=== PATIENT | female | born 1960 | race Caucasian/White ===

== ENCOUNTER 2023-02-18 04:00 | Day surgery (SDC) | payer OTHER ==
[2023-02-18] VITALS (234 sets, daily range): BP systolic 74–221; BP diastolic 28–196
[~2023-02-18] VITALS: Ht 147.3 cm; Wt 51.0 kg
[2023-02-18 08:08] LABS: BASO% 0.6 % (0-3); EOS% 2.5 % (0-8); HEMATOCRIT 41.8 % (37.0-47.0); HEMOGLOBIN 13.4 g/dl (12.0-16.0); IMMATURE GRANULOCYTES 0.1 % (0.0-5.0); MEAN CELL VOLUME 92.7 fL CALC (80.0-100.0); MEAN CORPUSCULAR HGB 29.7 pG CALC (26.0-32.0); MEAN CORPUSCULAR HGB CONC 32.1 g/dL CAL (32.0-36.0); MONO% 8.8 % (2-13); NEUT# 4.28 thou/uL (2.00-7.15); RED BLOOD COUNT 4.51 mill/uL (4.20-5.60); RED CELL DISTRI WIDTH 12.5 % (11.5-15.5)
[2023-02-18 08:31] LABS: ALBUMIN 3.9 g/dL (3.2-5.0); ALKALINE PHOSPHATASE 90 u/l (38-126); ANION GAP 10 (6-22 (CALC)); BILIRUBIN, TOTAL 0.2 mg/dL (0.02-1.3); BUN 17 mg/dL (8-23); BUN/CREATININE RATIO 20 (12-20 (CALC)); CARBON DIOXIDE 26 mmol/l (22-30); CHLORIDE 107 mmol/l (95-108); CREATININE 0.9 mg/dL (0.5-1.0); GFR FOR AFR.AMER. > 60 ML/MIN (>=60 (CALC)); GFR OTHER RACES > 60 ML/MIN (>=60 (CALC)); SGOT/AST 28 u/l (9-36); SODIUM 139 mmol/l (137-146); TOTAL PROTEIN 6.7 g/dL (6.3-8.2)
[2023-02-18] MEDS ORDERED: CLONIDINE0.1 MG PO (16:45)
[2023-02-18] MEDS ORDERED: NALTREXONE50 MG PO (16:45)
[2023-02-18] MEDS ORDERED: KLONOPIN2 MG PO (16:46)
[2023-02-19 03:59] VITALS: BP 129/61
[2023-02-19 07:34] VITALS: BP 143/58
[2023-02-19 07:49] LABS: BASO% 0.2 % (0-3); HEMATOCRIT 38.8 % (37.0-47.0); HEMOGLOBIN 12.6 g/dl (12.0-16.0); IMMATURE GRANULOCYTES 0.1 % (0.0-5.0); LYMPH% 12.9 % (15-41); MEAN CELL VOLUME 92.2 fL CALC (80.0-100.0); MEAN CORPUSCULAR HGB 29.9 pG CALC (26.0-32.0); MEAN CORPUSCULAR HGB CONC 32.5 g/dL CAL (32.0-36.0); MONO% 9.2 % (2-13); NEUT# 9.12 thou/uL (2.00-7.15); NEUT% 77.6 % (42-76); RED BLOOD COUNT 4.21 mill/uL (4.20-5.60); RED CELL DISTRI WIDTH 12.7 % (11.5-15.5)
[2023-02-19 08:00] LABS: ALBUMIN 3.5 g/dL (3.2-5.0); ALKALINE PHOSPHATASE 105 u/l (38-126); ANION GAP 11 (6-22 (CALC)); BUN 13 mg/dL (8-23); BUN/CREATININE RATIO 17 (12-20 (CALC)); CARBON DIOXIDE 23 mmol/l (22-30); CHLORIDE 108 mmol/l (95-108); CREATININE 0.8 mg/dL (0.5-1.0); GFR FOR AFR.AMER. > 60 ML/MIN (>=60 (CALC)); GFR OTHER RACES > 60 ML/MIN (>=60 (CALC)); MAGNESIUM 2.2 mg/dL (1.6-2.3); POTASSIUM 4.1 mmol/l (3.5-5.1); SGOT/AST 45 u/l (9-36); SODIUM 138 mmol/l (137-146); TOTAL PROTEIN 6.2 g/dL (6.3-8.2)
[2023-02-19 08:01] LABS: BILIRUBIN, TOTAL 0.5 mg/dL (0.02-1.3)
[2023-02-19 16:08] VITALS: BP 131/56
[2023-02-19 18:57] VITALS: BP 139/60
[2023-02-19 18:58] VITALS: BP 139/60
[2023-02-20 06:21] LABS: ALBUMIN 3.3 g/dL (3.2-5.0); ALKALINE PHOSPHATASE 91 u/l (38-126); ANION GAP 9 (6-22 (CALC)); BILIRUBIN, TOTAL 0.6 mg/dL (0.02-1.3); BUN 17 mg/dL (8-23); BUN/CREATININE RATIO 21 (12-20 (CALC)); CARBON DIOXIDE 25 mmol/l (22-30); CHLORIDE 109 mmol/l (95-108); CREATININE 0.8 mg/dL (0.5-1.0); GFR FOR AFR.AMER. > 60 ML/MIN (>=60 (CALC)); GFR OTHER RACES > 60 ML/MIN (>=60 (CALC)); MAGNESIUM 1.9 mg/dL (1.6-2.3); POTASSIUM 3.3 mmol/l (3.5-5.1); SGOT/AST 60 u/l (9-36); SODIUM 139 mmol/l (137-146); TOTAL PROTEIN 5.9 g/dL (6.3-8.2)
[2023-02-20 07:25] VITALS: BP 150/60
== END 2023-02-20 19:10 | disposition home or self-care (01) | DRG 897 ==
LOC: MS2 04:00 → ANR 04:00 → MS2 18:51 → ANR 02-20 19:10
PROVIDERS: ATTEND Anesthesiology Critical Care Medicine
DX: F11.20 Opioid dependence, uncomplicated (principal)
CPT/HCPCS: J0131; J2060; J2354; J3475